=== PATIENT | female | born 1990 | race Hispanic/Latino ===

== ENCOUNTER 2017-09-30 22:40 | Emergency (ER) | payer BC, MEDICAID ==
[2017-09-30 23:13] LABS: BASOPHILS % (AUTO) 0.3 % (0.0-5.0); EOSINOPHILS % (AUTO) 0.8 % (0.0-8.0); HEMATOCRIT 33.5 % (36-48); LYMPHOCYTES % (AUTO) 31.1 % (21.0-51.0); MEAN CORPUSCULAR HEMOGLOBIN 29.2 pg (27.0-33.0); MEAN CORPUSCULAR HGB CONC 34.7 g/dL (32.0-36.0); MONOCYTES % (AUTO) 7.1 % (3.0-13.0); NEUTROPHILS % (AUTO) 60.7 % (40.0-77.0); PLATELET COUNT (AUTO) 326 K/uL (130-400); RED BLOOD CELL COUNT(AUTO) 3.99 MIL/uL (4.00-5.50); RED CELL DISTRIBUTION WIDTH 16.1 % (11.0-15.5); WHITE BLOOD COUNT (AUTO) 12.6 K/uL (4.8-10.8)
[2017-09-30 23:29] LABS: CREATININE 0.6 mg/dL (0.5-1.5); POTASSIUM 4.4 mmol/L (3.5-5.1)
[2017-09-30 23:33] LABS: ALBUMIN 2.9 g/dL (3.5-5.0); BILIRUBIN,TOTAL 0.3 mg/dL (0.2-1.0); TOTAL PROTEIN, SERUM 7.7 g/dL (6.0-8.3)
[2017-09-30] MEDS ORDERED: SODIUM CHLORIDE 0.9% 1000ML 1,000 ML IV ONE (23:33)
[2017-09-30] MEDS ORDERED: ONDANSETRON HCL 4 MG/2 ML VIAL ONE (23:33)
[2017-09-30 23:57] LABS: APPEARANCE,URINE SLIGHTLY CLOUDY (CLEAR); BILIRUBIN,URINE Negative (NEGATIVE); COLOR,URINE Yellow (YELLOW); GLUCOSE, URINE (UA) Negative (NEGATIVE); KETONES,URINE Negative (NEGATIVE); LEUKOCYTE ESTERASE ,URINE Moderate (NEGATIVE); NITRATE,URINE Negative (NEGATIVE); OCCULT BLOOD,URINE Trace (NEGATIVE); PH,URINE 5.5 (5.0-8.0); PROTEIN,URINE Negative (NEGATIVE); UROBILINOGEN,URINE 0.2 mg/dL (0.2-1.0)
[2017-10-01 00:04] LABS: BACTERIA,URINE Moderate /HPF (None Seen)
[2017-10-01] MEDS ORDERED: SODIUM CHLORIDE 0.9% 50 ML IV ONE (00:27)
[2017-10-01] MEDS ORDERED: CEFTRIAXONE SODIUM 1 GM ONE (00:27)
== END 2017-10-01 01:10 | disposition home or self-care (01) ==
LOC: EDH 22:40
DX: O23.92 Unspecified genitourinary tract infection in pregnancy, second trimester (principal); Z3A.15 15 weeks gestation of pregnancy
CPT/HCPCS: 36415; 80053; 81001; 85025; 96374; 96375; 99284; J0696; J2405; J7030

== ENCOUNTER 2017-10-24 13:27 | Emergency (ER) | payer BC, MEDICAID ==
[2017-10-24 14:12] LABS: APPEARANCE,URINE Cloudy (CLEAR); BILIRUBIN,URINE Negative (NEGATIVE); COLOR,URINE Yellow (YELLOW); GLUCOSE, URINE (UA) Negative (NEGATIVE); KETONES,URINE Negative (NEGATIVE); LEUKOCYTE ESTERASE ,URINE Large (NEGATIVE); NITRATE,URINE Negative (NEGATIVE); OCCULT BLOOD,URINE Negative (NEGATIVE); PH,URINE 5.5 (5.0-8.0); PROTEIN,URINE Negative (NEGATIVE); UROBILINOGEN,URINE 0.2 mg/dL (0.2-1.0)
[2017-10-24 14:23] LABS: BACTERIA,URINE Few /HPF (None Seen); RBC,URINE None Seen /HPF (0-1); SQUAMOUS EPITHELIAL CELL,UR 30-50 /HPF (0-2)
== END 2017-10-24 15:32 | disposition home or self-care (01) ==
LOC: EDH 13:27
DX: O23.42 Unspecified infection of urinary tract in pregnancy, second trimester (principal); Z3A.16 16 weeks gestation of pregnancy
CPT/HCPCS: 81001

== ENCOUNTER 2018-03-27 05:41 | Inpatient (IN) | payer BC, MEDICAID ==
[2018-03-26 15:40] LABS: HEMATOCRIT 33.3 % (36-48); MEAN CORPUSCULAR HEMOGLOBIN 27.4 pg (27.0-33.0); MEAN CORPUSCULAR HGB CONC 33.8 g/dL (32.0-36.0); MEAN CORPUSCULAR VOLUME 81.1 fL (79-99); PLATELET COUNT (AUTO) 360 K/uL (130-400); RED BLOOD CELL COUNT(AUTO) 4.11 MIL/uL (4.00-5.50); RED CELL DISTRIBUTION WIDTH 17.1 % (11.0-15.5); WHITE BLOOD COUNT (AUTO) 10.1 K/uL (4.8-10.8)
[~2018-03-27] VITALS: Ht 167.6 cm; Wt 131.1 kg
[2018-03-27 06:00] VITALS: BP 138/78
[2018-03-27] MEDS ORDERED: LACTATED RINGERS 1000ML 1,000 ML IV SCH (06:00)
[2018-03-27] MEDS ORDERED: CEFAZOLIN SODIUM 1 GM VIAL IVP PRN (06:00)
[2018-03-27] MEDS ORDERED: FENTANYL CITRATE PF 50 MCG/1 ML 2ML VIAL ONE (06:51)
[2018-03-27] MEDS ORDERED: DURAMORPH PF1 MG/ML 10ML AMP IV ONE (06:51)
[2018-03-27] MEDS ORDERED: CLINDAMYCIN 900 MG/D5% WATER 0 ML IV ONE (07:02)
[2018-03-27] MEDS ORDERED: CEFAZOLIN SODIUM 1 GM VIAL ONE (07:03)
[2018-03-27] MEDS ORDERED: CEFAZOLIN SODIUM 1 GM VIAL IVP ONE (07:08)
[2018-03-27] MEDS ORDERED: ONDANSETRON HCL 4 MG/2 ML VIAL ONE (07:27)
[2018-03-27] MEDS ORDERED: PHENYLEPHRINE HCL 10 MG/ML 1ML VIAL IV ONE (07:53)
[2018-03-27] MEDS ORDERED: SODIUM CHLORIDE 0.9% 10 ML VIAL ONE (07:54)
[2018-03-27] MEDS ORDERED: ONDANSETRON HCL 4 MG/2 ML 8 MG in SODIUM CHLORIDE 0.9% 50 ML IVP NR (08:45)
[2018-03-27] MEDS ORDERED: EPHEDRINE SULFATE 50 MG/ML AMPULE IVP PRN (08:45)
[2018-03-27] MEDS ORDERED: ONDANSETRON HCL 4 MG/2 ML VIAL IVP PRN ×2 (08:45)
[2018-03-27] MEDS ORDERED: NALOXONE HCL 0.4 MG/1 ML ML IVP PRN ×2 (08:45)
[2018-03-27] MEDS ORDERED: DiphenhydrAMINE HCL 50 MG/ML VIAL IVP PRN (08:45)
[2018-03-27] MEDS ORDERED: METOCLOPRAMIDE 10 MG/2 ML VIAL IVP PRN (08:45)
[2018-03-27] MEDS ORDERED: HYDROCODONE/ACETAMINOPHEN 5/325 MG TAB PO PRN (08:45)
[2018-03-27] MEDS ORDERED: MORPHINE SULFATE 2 MG/ML 1ML SYG IVP PRN (08:45)
[2018-03-27] MEDS ORDERED: PROMETHAZINE HCL 25 MG/ML 1ML AMPULE IM PRN (08:45)
[2018-03-27] MEDS: CALDOLOR 800MG+NS 250ML 250 ML IV SCH ×2 (08:57→17:41)
[2018-03-27 10:05] VITALS: BP 134/78
[2018-03-27] MEDS ORDERED: SODIUM CHLORIDE 0.9% 10 ML VIAL IVP PRN (11:15)
[2018-03-27] MEDS ORDERED: OXYTOCIN 10 USP UNITS/ML ONE (15:04)
[2018-03-27 15:25] VITALS: BP 124/77
[2018-03-27] MEDS: HYDROCODONE/ACETAMINOPHEN 5/325 MG TAB PO PRN (18:54)
[2018-03-27 19:53] VITALS: BP 119/76
[2018-03-28 00:07] VITALS: BP 132/55
[2018-03-28] MEDS: DEXTROSE 5 %-0.45 % NACL 1,000 ML IV PRN ×2 (00:11→09:23)
[2018-03-28] MEDS: CALDOLOR 800MG+NS 250ML 250 ML IV SCH (00:31)
[2018-03-28 04:25] VITALS: BP 106/56
[2018-03-28] MEDS: HYDROCODONE/ACETAMINOPHEN 5/325 MG TAB PO PRN ×2 (04:55→21:21)
[2018-03-28 05:26] LABS: HEMATOCRIT 29.9 % (36-48); MEAN CORPUSCULAR HEMOGLOBIN 27.4 pg (27.0-33.0); MEAN CORPUSCULAR HGB CONC 33.2 g/dL (32.0-36.0); MEAN CORPUSCULAR VOLUME 82.7 fL (79-99); PLATELET COUNT (AUTO) 284 K/uL (130-400); RED BLOOD CELL COUNT(AUTO) 3.61 MIL/uL (4.00-5.50); RED CELL DISTRIBUTION WIDTH 16.3 % (11.0-15.5)
[2018-03-28 07:36] VITALS: BP 106/49
[2018-03-28 08:23] LABS: HEPATITIS Bs ANTIGEN SCREEN P Negative (Negative)
[2018-03-28] MEDS ORDERED: LANOLIN 30GM OINTMENT TP PRN (08:30)
[2018-03-28] MEDS ORDERED: ACETAMINOPHEN EXTRA STRENGTH 500 MG TABLET PO PRN (08:30)
[2018-03-28] MEDS ORDERED: BISACODYL 10 MG SUPP.RECT RC PRN (08:30)
[2018-03-28] MEDS: IBUPROFEN 600 MG TABLET PO PRN ×2 (08:58→18:59)
[2018-03-28] MEDS: DOCUSATE SODIUM 100 MG CAP PO SCH ×2 (08:58→21:21)
[2018-03-28] MEDS: SIMETHICONE 80 MG TAB.CHEW PO PRN ×4 (08:58→21:21)
[2018-03-28] MEDS: DIPH,PERTUSS(ACELL),TET VAC/PF 0.5 ML VIAL IM SCH (08:59)
[2018-03-28 11:29] VITALS: BP 124/75
[2018-03-28] MEDS ORDERED: FERR325T22 PO (11:37)
[2018-03-28] MEDS ORDERED: PREN-154 PO (11:37)
[2018-03-28] MEDS: ACETAMINOPHEN-CODEINE 300/30MG TAB PO PRN (14:21)
[2018-03-28 15:28] VITALS: BP 144/79
[2018-03-28 19:43] VITALS: BP 113/62
[2018-03-29 00:44] VITALS: BP 125/69
[2018-03-29 04:15] VITALS: BP 115/63
[2018-03-29] MEDS: ACETAMINOPHEN-CODEINE 300/30MG TAB PO PRN (04:16)
[2018-03-29] MEDS: DIPH,PERTUSS(ACELL),TET VAC/PF 0.5 ML VIAL IM SCH (06:36)
[2018-03-29 07:20] VITALS: BP 114/71
[2018-03-29] MEDS: SIMETHICONE 80 MG TAB.CHEW PO PRN (08:45)
[2018-03-29] MEDS: DOCUSATE SODIUM 100 MG CAP PO SCH (08:45)
[2018-03-29] MEDS: IBUPROFEN 600 MG TABLET PO PRN (08:48)
[2018-03-29 11:15] VITALS: BP 125/72
== END 2018-03-29 14:05 | disposition home or self-care (01) | DRG 788 ==
LOC: LDH 05:41 → EDSTATUS 10:00 → WSH 10:00
PROVIDERS: ADMIT Obstetrics & Gynecology; ATTEND Obstetrics & Gynecology
PROC: 10D00Z1 Extraction of Products of Conception, Low, Open Approach (ICD-10-PCS; principal; 2018-03-27 07:21)
DX: O30.003 Twin pregnancy, unspecified number of placenta and unspecified number of amniotic sacs, third trimester (principal); O32.1XX2 Maternal care for breech presentation, fetus 2; Z37.2 Twins, both liveborn; Z3A.38 38 weeks gestation of pregnancy
CPT/HCPCS: 36415; 59510; 76815; 85027; 86592; 86850; 86900; 86901; 87340; 90715; A4344; A4450; A4606; J0690; J1741; J2274; J2370; J2405; J2590; J3010; J3490; J7120; Q2035